=== PATIENT | female | born 1960 | race Caucasian/White ===

== ENCOUNTER 2017-01-01 10:45 | Emergency (ER) | payer MEDICARE ==
--- NOTE | ~2017-01-01 | ER ---
PATIENT'S NAME: ELLE COX [facility] AGE: 56 Y [address] ROOM: [place] [address] LOCATION: [facility] ADMIT DATE: 01/01/2017 ER/Outpatient Report DISCHARGE DATE: 01/01/2017 FAMILY PHYSICIAN: Brian Angeles MD ATTENDING PHYSICIAN: Naina Arias Time of Arrival: 1045 hours. Time Seen: 1045 hours. IDENTIFICATION: A 56-year-old female. CHIEF COMPLAINT: Back pain. HISTORY OF PRESENT ILLNESS: The patient is a 56-year-old female who arrives by ambulance from Dr. Angeles's clinic in [place]. The patient tripped and fell of her bulldog this morning when she was letting him out around 0815 hours. The patient went to her physician in [place], was given Ultram and some Vistaril and Phenergan IM with no improvement of her pain. She is writhing around on the cot in obvious distress here in the emergency room, complaining of left lower back pain and left hip pain. She has had previous low back surgery. She has no numbness or tingling. No other problems or concerns. ALLERGIES: TO MORPHINE, SULFA, CODEINE, PENICILLIN, DEMEROL, AND LISINOPRIL. CURRENT MEDICATIONS: 1. Zyrtec. 2. Cymbalta. 3. Micardis. 4. Tramadol 50 mg 4 times a day. 5. Duloxetine 60 mg daily. 6. Hydrochlorothiazide 25 mg daily. 7. Telmisartan 40 mg daily. 8. Cetirizine 10 mg daily. MEDICAL PROBLEMS: Allergic rhinitis, hypertension, rheumatoid arthritis, and MS. PRIOR SURGERIES: Back surgery. SOCIAL HISTORY: PATIENT'S NAME: ELLE COX [facility] AGE: 56 Y [address] ROOM: [place] [address] LOCATION: [facility] ADMIT DATE: 01/01/2017 ER/Outpatient Report DISCHARGE DATE: 01/01/2017 FAMILY PHYSICIAN: Brian Angeles MD ATTENDING PHYSICIAN: Naina Arias The patient is . Lives in [place]. She is disabled. Tobacco use, half a pack per day for 17 years. Alcohol use, she said occasionally. EMS reports she drinks daily. REVIEW OF SYSTEMS: All systems reviewed and negative other than what is noted in the HPI. PHYSICAL EXAMINATION: VITAL SIGNS: Height 5 feet 6 inches, weight 70 kg, blood pressure 118/53, pulse 83, respirations 20, temperature 96.9, and saturations 99% on room air. GENERAL: A 56-year-old female, in obvious distress. HEENT: Unremarkable. LUNGS: Clear to auscultation. HEART: Regular rate and rhythm. ABDOMEN: Bowel sounds present. Soft, nondistended, and nontender. SKIN: [place], warm, and dry. No lesions or rashes noted. NEUROLOGIC: No focal deficit. MUSCULOSKELETAL: The patient is tender to palpation in her left lumbar spine area with some palpable spasm. EMERGENCY DEPARTMENT COURSE: An IV was initiated. The patient was given 2 mg of Valium IV with significant improvement in her pain. She was resting comfortably and actually sleeping after this. CT scan of her pelvis and left hip, no acute fractures. Lumbar spine CT, postoperative changes, anterior subluxation of L4 over L5 by about 6 mm, spinal stenosis at L4-L5 with borderline spinal stenosis at L3-L4, lateral recess and foraminal narrowing at multiple levels. IMPRESSION: 1. Musculoskeletal low back pain with palpable spasm, relieved with Valium. 2. Anterior subluxation of L4 over L5 by about 6 mm. 3. Spinal stenosis secondary to anterior subluxation of L4 over L5 by about 6 mm. PLAN: Ice as needed. Slow movements. Tramadol is prescribed. Flexeril 10 mg 1/2 to 1 p.o. q.8 hours p.r.n. spasm, dispensed 10 with 0 refills. No alcohol. Follow up with Dr. Angeles in 1-2 days, follow up sooner if any problems or concerns. The patient understands and agrees, and all questions have been answered. NAINA ARIAS MD PATIENT'S NAME: ELLE COX [facility] AGE: 56 Y [address] ROOM: [place] [address] LOCATION: ED ADMIT DATE: 01/01/2017 ER/Outpatient Report DISCHARGE DATE: 01/01/2017 FAMILY PHYSICIAN: Brian Angeles MD ATTENDING PHYSICIAN: Naina Arias/inge /[id number] d: 01/01/172020 t: 01/02/17716, OUTPATIENT REPORT
== END 2017-01-01 12:30 | disposition disaster alternative care site (69) ==
LOC: GMED 10:45
DX: S33.140A Subluxation of L4/L5 lumbar vertebra, initial encounter (principal); M48.06 Spinal stenosis, lumbar region; M62.830 Muscle spasm of back; I10 Essential (primary) hypertension; M06.9 Rheumatoid arthritis, unspecified; Z98.890 Other specified postprocedural states; Z79.899 Other long term (current) drug therapy; Z88.0 Allergy status to penicillin; Z88.2 Allergy status to sulfonamides; Z88.5 Allergy status to narcotic agent; Z88.8 Allergy status to other drugs, medicaments and biological substances; W01.0XXA Fall on same level from slipping, tripping and stumbling without subsequent striking against object, initial encounter
CPT/HCPCS: J2001; J3360